=== PATIENT | female | born 1960 | race Caucasian/White ===

== ENCOUNTER 2021-04-14 07:59 | Day surgery (SDC) | payer BC ==
[~2021-04-14] VITALS: Ht 175.3 cm; Wt 107.9 kg
[2021-04-14] MEDS ORDERED: ALDACTONE50 MG PO (08:13)
[2021-04-14] MEDS ORDERED: HYGROTON50 MG PO (08:14)
[2021-04-14] MEDS ORDERED: FOLIC ACID 11 MG/TA1 PO (08:14)
[2021-04-14] MEDS ORDERED: PRILOSEC 20MG20 MG PO (08:14)
[2021-04-14] MEDS ORDERED: VITAMIND3 5000 PO (08:15)
[2021-04-14 08:16] VITALS: BP 148/89; PULSE 94; TEMP 97.4
[2021-04-14 09:25] VITALS: BP 104/73; PULSE 73; TEMP 97.2
--- NOTE | 2021-04-14 09:25 | NUR ---
PATIENT TRANSPORTED PER CART FROM GI SUITE TO BAY 3 ACCOMPANIED BY ENDO RN. MONITORS APPLIED. VSS ON ROOM AIR. ADMISSION SAO2 WAS 94%. NO FAMILY IN ROOM. PATIENT STATES A SERVICE WILL BE HERE AT 1030 TO TAKE HER HOME. PATIENT GIVEN WATER AND MUFFIN.
[2021-04-14 09:30] VITALS: BP 112/74; PULSE 75
--- NOTE | 2021-04-14 09:30 | NUR ---
VSS ON ROOM AIR. PATIENT TOLERATES WATER AND MUFFIN WITHOUT PROBLEMS. PATIENT DENIES DISCOMFORT.
[2021-04-14 09:45] VITALS: BP 115/76; PULSE 76
[2021-04-14 10:00] VITALS: BP 128/72; PULSE 84
--- NOTE | 2021-04-14 10:00 | NUR ---
VSS ON ROOM AIR. PATIENT DENIES DISCOMFORT AND NAUSEA. DR CHAVEZ IN AND SPEAKS WITH PATIENT.
[2021-04-14 10:15] VITALS: BP 130/80; PULSE 84
--- NOTE | 2021-04-14 10:15 | NUR ---
VSS ON ROOM AIR. PATIENT READY TO GO HOME AND RIDE TO BE COMING. IV DC'D WITH CATHETER TIP INTACT PRESSURE AND BANDAGE APPLIED. 1020 DISCHARGE INSTRUCTIONS GIVEN VERBAL AND DISCHARGE PACKET PROVIDED. QUESTIONS ANSWERED AND PATIENT VOICED UNDERSTANDING. PATIENT CHANGES INTO STREET CLOTHES. 1030 PATIENT DISCHARGED PER WHEELCHAIR ACCOMPANIED BY AMB RN TO [facility] BY [employer]
== END 2021-04-14 10:30 | disposition home or self-care (01) ==
LOC: SDCO 07:59
DX: Z12.11 Encounter for screening for malignant neoplasm of colon (principal); D12.2 Benign neoplasm of ascending colon; D12.3 Benign neoplasm of transverse colon; K64.1 Second degree hemorrhoids; R73.03 Prediabetes; E66.9 Obesity, unspecified
CPT/HCPCS: J2704; J7120

== ENCOUNTER → 2021-09-13 | Outpatient (CLI) | payer BC ==
[~2021-09-13] MED LIST: ALDACTONE50 MG PO; FOLIC ACID 11 MG/TA1 PO; HYGROTON50 MG PO; PRILOSEC 20MG20 MG PO; VITAMIND3 5000 PO
== END ==
LOC: COL.RAD 12:56
DX: I67.82 Cerebral ischemia (principal)
CPT/HCPCS: A9575

== ENCOUNTER → 2023-04-10 | Outpatient (CLI) | payer BC | LOC: COL.LAB 09:56 | DX: J30.1 Allergic rhinitis due to pollen (principal) ==

== ENCOUNTER → 2023-06-14 | Outpatient (CLI) | payer BC ==
[~2023-06-14] MED LIST changes: +Albuterol 0.083% Neb Soln 2.5 MG/3 ML UD IH ONE
== END ==
LOC: COL.CARD 09:10
DX: R06.02 Shortness of breath (principal)